=== PATIENT | female | born 1980 | race Caucasian/White ===

== ENCOUNTER 2020-03-12 18:32 | Emergency (ER) | payer OTHER ==
[2020-03-12] MEDS ORDERED: Silver Sulfadiazine 1% Crm 50 GM Tube TOP ONE (19:31)
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
== END 2020-03-12 19:44 | disposition home or self-care (01) ==
LOC: MW.ED 18:32
DX: T23.252A Burn of second degree of left palm, initial encounter (principal); X10.1XXA Contact with hot food, initial encounter
CPT/HCPCS: 16020; 99283; A9270; 99282